=== PATIENT | male | born 1960 | race Caucasian/White ===

== ENCOUNTER 2022-03-19 09:46 | Emergency (ER) | payer SELFPAY | END 2022-03-19 12:30 | disposition home or self-care (01) | LOC: ER1 09:46 | DX: S30.1XXA Contusion of abdominal wall, initial encounter (principal); X58.XXXA Exposure to other specified factors, initial encounter; Y92.69 Other specified industrial and construction area as the place of occurrence of the external cause | CPT/HCPCS: 71046; 99283 ==

== ENCOUNTER → 2022-05-02 | Outpatient (CLI) | payer BC | LOC: EXRD 09:59 | DX: M79.662 Pain in left lower leg (principal) | CPT/HCPCS: 73590 ==